=== PATIENT | male | born 1965 | race Caucasian/White ===

== ENCOUNTER 2022-07-12 00:32 | Day surgery (SDC) | payer BC, SELFPAY ==
[2022-06-27 12:35] VITALS: BMI 30.2
--- NOTE | 2022-06-27 12:42 | PC.NURSE ---
Report to the Outpatient Waiting Room, entrance under the green pavilion located off [facility], at time 10:00AM on date 07-12-22. Planned Procedure Time: 12:00PM. Time changes happen often and if your time is changed the preop area will call you the afternoon before. - You and your visitor will be asked to self-screen and do not enter if you have any COVID symptoms. - Only one visitor is requested with a max of two and NO children visitors are allowed at this time. - The patient visitor may be requested to leave or wait in car when not with patient due to distancing restrictions. - A mask is optional within the hospital at this time. Patients may have clear liquids (water, carbonated beverages, clear teas, apple juice) until 3 hours prior to surgery (09:00AM) with a maximum of 20 ounces. - No food from midnight until time of surgery Take the following medications with a SIP of water the morning of surgery: N/A Medications to discontinue per physician N/A Please no make-up, nail yakut, hairspray, perfume, deodorant, or body powder the day of surgery. No jewelry (including any body piercings) or valuables the day of surgery, leave them at home. Please take a shower or bath the night before, or the morning of, surgery with an antibacterial soap. Wear comfortable, loose fitting clothing. - Jewelry must be removed prior to entering the operating room. Rings and piercings that are not removed may be cut off. - The hospital will not accept responsibility for valuables. - Please leave all valuables, including medications, at home the day of surgery. If you are going home after surgery, a licensed bulk delivery driver must drive you home. - NO public transportation without another adult if you receive anesthesia. - We recommend that an adult stay with you for 24 hours following discharge. - We also recommend that you do not drive, make important decision, drink alcoholic beverages, or take any drugs that were not prescribed by your health care provider for at least 24 hours after your discharge time. Follow any additional instructions given to you from your surgeon. If you or anyone in your household have experienced Covid symptoms in the past week, please notify your surgeon or the nurse liaison at the phone number below for possible testing. Telephone instructions given to PATIENT and asked if any additional questions and then verbalized understanding. Patient advised to call surgeon office or pre surgery nurse liaison [phone] if any additional questions.
[2022-07-12] MEDS: LACTATED RINGERS 1,000 ML 30 ML IV CONT (10:40)
[2022-07-12] MEDS: ACETAMINOPHEN 500 MG TABLET 1000 MG PO (10:40)
[2022-07-12] MEDS: KETOROLAC 15 MG/ML VIAL (*BKC) IV PUSH (10:40)
[2022-07-12 10:48] VITALS: BP 127/81; PULSE 86; RESP 14; TEMP 36.8; O2SAT 96
--- NOTE | 2022-07-12 11:44 | WPDHPUPDATE1 ---
History and Physical Update Update Date/Time: 07/12/22 11:44 History and Physical has been reviewed, including an updated exam of the patient. There are NO changes in the patient's condition. Risks, benefits, and alternatives have been discussed and questions answered. Patient agrees to proceed with procedure. Risks include but are not limited to infection, nerve or blood vessel injury. Procedure is a Right Carpal Tunnel Release.
--- NOTE | 2022-07-12 12:36 | P.HP_ITS ---
H&P: HPI History of Present Illness Date/Time: 07/12/22 12:36 Chief Complaint: 57 yr old male with Right Hand numbness over the radial 3 digits for more than 6 months. He has failed conservative management with night time bracing. Review of Systems Review of Systems: negative Constitutional: Comments: None Musculoskeletal: Comments: Right hand with numbness over the radial 3 digits. [facility] Social History Social History Smoking status: Never smoker Second hand tobacco smoke exposure: No Alcohol use details: SOCIALLY ONCE A MONTH Substance use: never Substance use type: does not use Living arrangements: alone Spiritual care concerns: No Meds Home Medications and Allergies Home Medications Medication Instructions Recorded Confirmed Type No Home Medications 06/27/22 06/27/22 History Allergies Allergy/AdvReac Type Severity Reaction Status Date / Time No Known Allergies Allergy Verified 07/12/22 10:59 Vital Signs Vital Signs - 24 hr 07/12/22 10:48 Temperature 36.8 C Pulse Rate 86 Respiratory Rate 14 Blood Pressure 127/81 Pulse Oximetry 96 Oxygen Delivery Room Air Exam Neuro: Other: Right hand with numbness over the radial 3 digits Assessment and Plan Assessment and plan (1) Carpal tunnel syndrome, right: Code(s): G56.01 - Carpal tunnel syndrome, right upper limb Status: Acute Plan Right Carpal Tunnel Syndrome, plan for a Right Carpal Tunnel release. Risk benefits alternatives and complications discussed with patient. He agrees to proceed.
--- NOTE | 2022-07-12 12:40 | P.PNAN_ITS ---
Anes - Initial Pre Proc Eval Procedure: Operation Date: 07/12/22 12:00 Proposed Procedures p Right Carpal Tunnel Release - Deon Lopez MD Date/Time: 07/12/22 12:40 Surgeon: Deon Lopez MD Pre Op Diagnosis: carpal tunnel syndrome Patient Data Age: 57 Gender: M Height: 1.75 m Weight: 93.6 kg Last Vital Signs Temp 98.2 F 07/12/22 10:48 Pulse 86 07/12/22 10:48 Resp 14 07/12/22 10:48 BP 127/81 07/12/22 10:48 Pulse Ox 96 07/12/22 10:48 O2 Del Method Room Air 07/12/22 10:48 Allergies Allergy/AdvReac Type Severity Reaction Status Date / Time No Known Allergies Allergy Verified 07/12/22 10:59 Home Medications Medication Instructions Recorded Confirmed Type No Home Medications 06/27/22 06/27/22 History Patient hx anesthesia problems: none Family hx anesthesia problems: none Results Review: All pre-operative results and documents have been reviewed as part of the pre- operative evaluation. [facility] Social History Social History Smoking status: Never smoker Second hand tobacco smoke exposure: No Alcohol use details: SOCIALLY ONCE A MONTH Substance use: never Substance use type: does not use Living arrangements: alone Spiritual care concerns: No Anes - Eval Final PreProcedure Day of Procedure 07/12/22 12:40 Patient weight: obese Heart: regular rate and rhythm Lungs: clear to auscultation Airway: Mallampati scale class II Neurological: alert and oriented Last oral intake: >/= 8 hours ASA classification: II Emergent: no Anesthetic plan: proceed Anesthesia type and monitoring: general GIVS and standard monitoring Results Review: All pre-operative results and documents have been reviewed as part of the pre- operative evaluation. Informed Consent: The patient's anesthetic plan and its attendant risks and benefits were discussed with the patient/family/POA. Questions were solicited and answers provided to the satisfaction of the patient/family/POA.
[2022-07-12] MEDS: ceFAZolin 2 GM/D5W 50 ML 2 GM/50 ML BAG IVPB (12:45)
[2022-07-12] MEDS: LIDOCAINE HCL 1% LOCAL INJ 20 ML VIAL 6 ML INFILTRATE (13:09)
[2022-07-12 13:24] VITALS: BP 116/80; PULSE 79; RESP 16; O2SAT 100
--- NOTE | 2022-07-12 13:36 | W.PM.PROC2 ---
Procedure Note - Detailed Date of Procedure 07/12/22 Pre-op Diagnosis Right Carpal tunnel syndrome Post-op Diagnosis Same Procedure Performed Right Carpal Tunnel Release Surgeon Deon Lopez MD Anesthesia General Indications 57 yr old male with numbness involving the Right hand radial 3 digits for more than 6 months. He failed conservative management (night time splinting). Findings Right carpal tunnel syndrome Description of Procedure After obtaining informed consent, patient was taken to OR and positioned supine. He then underwent general anesthesia. Right upper extremity was prepped in the standard sterile fashion. Esmarch exsanguination was performed and tourniquet was elevated to 250mm mercury. Prior to elevating tourniquet, time out was performed to confirm correct patient, correct procedure, correct site of surgery and to confirm anti-biotic administration within 1 hour of incision. 1% lidocaine was injected into the incision site (5cc). A palmar incision was made ulnar to the ulnar crease. Dissection carried down to identify the transverse carpal ligament. I then carefully incised the carpal tunnel ligament distally to the fatty tissue, then proximally to include the antebrachial fascia under direct visualization at all times to protect the median nerve and to avoid injury to the motor branch of the median nerve. (reason for the ulnar positioning of the incision). after complete release of the transverse carpal tunnel ligament, the skin was closed with multiple vertical mattress sutures using 4-0 nylon suture. The Right hand was then bandaged in a sterile fashion. The patient was then transferred to the recovery room in stable condition. Estimated Blood Loss 1.0 Complications None Condition Stable Disposition PACU
[2022-07-12 13:54] VITALS: BP 119/79; PULSE 75; RESP 16
[2022-07-12 14:24] VITALS: BP 125/74; PULSE 60; RESP 16
== END 2022-07-12 14:50 | disposition home or self-care (01) ==
PROVIDERS: PCP Family Medicine; Visit Provider Orthopaedic Surgery
PROC: (CPT 24110; principal; 2022-07-12 12:00)
DX: G56.01 Carpal tunnel syndrome, right upper limb (principal); E66.9 Obesity, unspecified; Z68.30 Body mass index [BMI] 30.0-30.9, adult
CPT/HCPCS: 64721; A9270; J0690; J1885; J2250; J2405; J2704; J3010; J7120